=== PATIENT | male | born 1955 | race Caucasian/White ===

== ENCOUNTER 2022-04-09 19:22 | Emergency (ER) | payer MEDICARE, OTHER ==
[~2022-04-09] VITALS: Ht 170.1 cm; Wt 72.6 kg
[2022-04-09 19:59] LABS: BASO # 0.1 10*3/uL (0.0-0.1); BASO % 0.7 % (0.0-1.0); EOS # 0.2 10*3/uL (0.0-0.4); EOS % 2.5 % (1.0-4.0); HEMATOCRIT 41.4 % (42.0-52.0); LYMPH # 1.9 10*3/uL (1.3-4.4); LYMPH % 21.7 % (27.0-41.0); MEAN CELL VOLUME 90.8 fl (80.0-94.0); MEAN CORPUSCULAR HGB 29.6 pg (27.0-31.0); MEAN CORPUSCULAR HGB CONC 32.6 g/dl (33.0-37.0); MEAN PLATELET VOLUME 10.1 fl (9.6-12.3); MONO # 0.8 10*3/uL (0.1-1.0); MONO % 9.3 % (3.0-9.0); NEUT # 5.9 10*3/uL (2.3-7.9); NEUT % 65.4 % (47.0-73.0); PLATELET COUNT AUTOMATED 240 10*3/uL (130-400); RED BLOOD COUNT 4.56 10*6/uL (4.50-5.90)
[2022-04-09 20:14] LABS: ALKALINE PHOSPHATASE 60 U/L (45-117); BUN 18 mg/dl (7-24); CHLORIDE 105 mmol/L (98-107); CREATININE 1.55 mg/dL (0.70-1.30); POTASSIUM 4.8 mmol/L (3.5-5.1); SGOT/AST 30 IU/L (3-35); SGPT/ALT 23 U/L (12-78); SODIUM 142 mmol/L (136-145); TOTAL PROTEIN 7.7 gm/dL (6.4-8.2)
[2022-04-09 20:18] LABS: ACETAMINOPHEN (TYLENOL) < 5.0 ug/ml (10-30); ETHYL ALCOHOL < 3.0 mg/dl (<3)
[2022-04-09] MEDS ORDERED: VITAMIN D325 MCG PO (22:46)
[2022-04-09] MEDS ORDERED: DONEPEZIL HCL10 MG PO (22:48)
[2022-04-09] MEDS ORDERED: ELIQUIS5 M1 PO (22:50)
[2022-04-09] MEDS ORDERED: FENOFIBRATE160 MG PO (22:51)
[2022-04-09] MEDS ORDERED: KRILL OIL 3501 EACH PO (22:52)
[2022-04-09] MEDS ORDERED: NAMENDA10 MG PO (22:54)
[2022-04-09] MEDS ORDERED: PANTOPRAZOLE SO40 MG PO (22:55)
[2022-04-09] MEDS ORDERED: SEROQUEL50 MG PO (22:56)
[2022-04-09] MEDS ORDERED: TAGAMET HB200 M1 PO (22:57)
[2022-04-09] MEDS ORDERED: VISTARIL25 M2 PO (22:58)
[2022-04-09 23:22] LABS: BILIRUBIN Negative (Negative); BLOOD Trace-Intact (Negative); CLARITY Clear (Clear); COLOR Yellow (Yellow); GLUCOSE Negative (Negative); KETONE Negative (Negative); LEUKO ESTERASE Negative (Negative); NITRITE Negative (Negative); PH 6.5 (4.5-8.0); SPECIFIC GRAVITY 1.015 (1.001-1.030)
[2022-04-10] LABS: RBC 21-30 rbc/hpf (0-2)
[2022-04-10 00:02] LABS: BACTERIA TRACE
[2022-04-10 00:04] LABS: URINE AMPHETAMINES < 1000 (1000ng/ml); URINE BARBITURATES < 200 (200ng/ml); URINE BENZODIAZEPINES < 200 (200ng/ml); URINE CANNABINOIDS (THC) < 50 (50ng/ml); URINE COCAINE < 300 (300ng/ml); URINE METHADONE < 300 (300ng/ml); URINE OPIATES < 300 (300ng/ml)
[2022-04-10 00:05] LABS: URINE PHENCYCLIDINE < 25 (25ng/ml)
== END 2022-04-10 10:40 ==
LOC: ED 19:22
PROVIDERS: Emergency Medicine
DX: F63.81 Intermittent explosive disorder (principal); Z20.822 Contact with and (suspected) exposure to COVID-19; I48.91 Unspecified atrial fibrillation; J44.9 Chronic obstructive pulmonary disease, unspecified; K21.9 Gastro-esophageal reflux disease without esophagitis; I10 Essential (primary) hypertension; Z79.899 Other long term (current) drug therapy

== ENCOUNTER 2022-04-09 20:04 | Inpatient (IN) | payer MEDICARE, OTHER ==
[~2022-04-09] VITALS: Ht 165.1 cm; Wt 69.6 kg
[2022-04-09] MEDS ORDERED: VITAMIN D325 MCG PO (22:46)
[2022-04-09] MEDS ORDERED: DONEPEZIL HCL10 MG PO (22:48)
[2022-04-09] MEDS ORDERED: ELIQUIS5 M1 PO (22:50)
[2022-04-09] MEDS ORDERED: FENOFIBRATE160 MG PO (22:51)
[2022-04-09] MEDS ORDERED: KRILL OIL 3501 EACH PO (22:52)
[2022-04-09] MEDS ORDERED: NAMENDA10 MG PO (22:54)
[2022-04-09] MEDS ORDERED: PANTOPRAZOLE SO40 MG PO (22:55)
[2022-04-09] MEDS ORDERED: SEROQUEL50 MG PO (22:56)
[2022-04-09] MEDS ORDERED: TAGAMET HB200 M1 PO (22:57)
[2022-04-09] MEDS ORDERED: VISTARIL25 M2 PO (22:58)
[2022-04-10 11:01] VITALS: BP 134/61
[2022-04-10 11:37] LABS: THYROID STIM HORMONE (HS) 1.18 uIU/ml (0.358-4.75)
[2022-04-10 12:07] LABS: VITAMIN D, 25-HYDROXY 31.3 ng/mL (30-100)
[2022-04-10 19:17] VITALS: BP 114/87
[2022-04-11 08:08] VITALS: BP 131/70
[2022-04-11 20:00] VITALS: BP 135/78
[2022-04-12 08:00] VITALS: BP 125/90
[2022-04-12 20:00] VITALS: BP 116/87
[2022-04-13 07:55] VITALS: BP 122/67
[2022-04-13 20:00] VITALS: BP 146/86
[2022-04-14 07:22] VITALS: BP 126/64
[2022-04-14 19:15] VITALS: BP 136/66
[2022-04-15 08:05] VITALS: BP 148/85
[2022-04-15 19:52] VITALS: BP 139/63
[2022-04-16 07:28] LABS: BASO % 0.2 % (0.0-1.0); EOS # 0.1 10*3/uL (0.0-0.4); EOS % 0.7 % (1.0-4.0); HEMATOCRIT 44.5 % (42.0-52.0); LYMPH # 2.1 10*3/uL (1.3-4.4); LYMPH % 16.6 % (27.0-41.0); MEAN CELL VOLUME 88.5 fl (80.0-94.0); MEAN CORPUSCULAR HGB 29.4 pg (27.0-31.0); MEAN CORPUSCULAR HGB CONC 33.3 g/dl (33.0-37.0); MEAN PLATELET VOLUME 9.9 fl (9.6-12.3); MONO # 0.9 10*3/uL (0.1-1.0); MONO % 6.9 % (3.0-9.0); NEUT # 9.3 10*3/uL (2.3-7.9); NEUT % 75.4 % (47.0-73.0); PLATELET COUNT AUTOMATED 257 10*3/uL (130-400); RED BLOOD COUNT 5.03 10*6/uL (4.50-5.90); WHITE BLOOD COUNT 12.3 10*3/uL (4.8-10.8)
[2022-04-16 07:49] LABS: ALKALINE PHOSPHATASE 58 U/L (45-117); BUN 24 mg/dl (7-24); CHLORIDE 103 mmol/L (98-107); CREATININE 1.22 mg/dL (0.70-1.30); POTASSIUM 4.1 mmol/L (3.5-5.1); SGOT/AST 19 IU/L (3-35); SGPT/ALT 20 U/L (12-78); SODIUM 135 mmol/L (136-145); TOTAL PROTEIN 7.6 gm/dL (6.4-8.2)
[2022-04-16 07:58] VITALS: BP 146/86
[2022-04-16 08:00] VITALS: BP 146/86
[2022-04-16 20:00] VITALS: BP 124/97
[2022-04-17 07:45] VITALS: BP 123/77
[2022-04-17 18:53] VITALS: BP 121/64
[2022-04-18 08:20] VITALS: BP 137/85
[2022-04-18 20:00] VITALS: BP 135/82
[2022-04-19 07:06] VITALS: BP 132/77
[2022-04-19 20:00] VITALS: BP 105/70
[2022-04-20 08:00] VITALS: BP 140/82
[2022-04-20 20:00] VITALS: BP 122/57
[2022-04-21 07:00] VITALS: BP 126/78
[2022-04-21 18:44] VITALS: BP 102/59
[2022-04-22 08:06] VITALS: BP 143/71
[2022-04-22 20:00] VITALS: BP 117/92
[2022-04-23 08:19] VITALS: BP 151/79
[2022-04-23 20:00] VITALS: BP 121/72
[2022-04-24 07:51] VITALS: BP 132/78
[2022-04-24 20:00] VITALS: BP 132/100
[2022-04-25 07:51] VITALS: BP 119/75
[2022-04-25 20:00] VITALS: BP 110/72
[2022-04-26 08:00] VITALS: BP 120/70
[2022-04-26 20:00] VITALS: BP 126/82
[2022-04-27 08:02] VITALS: BP 134/66
[2022-04-27 20:00] VITALS: BP 116/76
[2022-04-28 07:48] VITALS: BP 126/87
[2022-04-28 20:00] VITALS: BP 105/82
[2022-04-29 07:35] VITALS: BP 132/85
[2022-04-29 20:00] VITALS: BP 120/94
[2022-04-30 07:00] VITALS: BP 105/78
[2022-04-30] MEDS ORDERED: RIVASTIGMINE TAR3 M1 PO (08:40)
[2022-04-30] MEDS ORDERED: QUETIAPINE FUMA50 M1 PO (08:40)
[2022-04-30] MEDS ORDERED: MEDROXYPROGESTE10 M1 PO (08:40)
[2022-04-30] MEDS ORDERED: VITAMIN D350 MC2 PO (08:40)
[2022-04-30] MEDS ORDERED: MEMANTINE HCL10 MG PO (08:40)
== END 2022-04-30 11:21 | DRG 883 ==
LOC: 3N 20:04
PROVIDERS: Counselor Professional; Student in an Organized Health Care Education/Training Program; ADMIT Psychiatry & Neurology Psychiatry; ATTEND Psychiatry & Neurology Psychiatry
DX: F63.81 Intermittent explosive disorder (principal); G30.9 Alzheimer's disease, unspecified; F02.80 Dementia in other diseases classified elsewhere, unspecified severity, without behavioral disturbance, psychotic disturbance, mood disturbance, and anxiety; I48.91 Unspecified atrial fibrillation; K21.9 Gastro-esophageal reflux disease without esophagitis; I10 Essential (primary) hypertension; J44.9 Chronic obstructive pulmonary disease, unspecified; F41.9 Anxiety disorder, unspecified; F32.9 Major depressive disorder, single episode, unspecified; R00.1 Bradycardia, unspecified; F63.9 Impulse disorder, unspecified; Z86.73 Personal history of transient ischemic attack (TIA), and cerebral infarction without residual deficits; Z72.89 Other problems related to lifestyle